=== PATIENT | male | born 1985 | race Caucasian/White ===

== ENCOUNTER 2020-02-08 07:42 | Inpatient (IN) | payer OTHER ==
[~2020-02-08] VITALS: Ht 182.9 cm; Wt 150.1 kg
[2020-02-08] MEDS ORDERED: IV NORMAL SALINE 1000ML BAG 1,000 ML IV ONE (08:45)
--- NOTE | 2020-02-08 08:48 | PHYS DOC ---
General Adult EDM: Chief Complaint: ABDOMINAL PAIN HPI: HPI: Patient is a 34 year old male who presented to ER today for evaluation of right lower abdominal pain started 2 days ago. Patient denies any fever, no nausea vomiting. Patient said he is not hungry. Patient denies any diarrhea. Patient denies any cough or chest pain. Patient denies any exposure to anybody who tested positive COVID-19. Review of Systems: Review of Systems: Constitutional: Denies fever or chills. [] Eyes: Denies change in visual acuity. [] HENT: Denies nasal congestion or sore throat. [] Respiratory: Denies cough or shortness of breath. [] Cardiovascular: Denies chest pain or edema. [] GI: Positive for right lower abdominal pain, no nausea vomiting, no diarrhea : Denies dysuria. [] Musculoskeletal: Denies back pain or joint pain. [] Integument: Denies rash. [] Neurologic: Denies headache, focal weakness or sensory changes. [] Endocrine: Denies polyuria or polydipsia. [] Lymphatic: Denies swollen glands. [] Psychiatric: Denies depression or anxiety. [] Heart Score: Risk Factors: Risk Factors: DM, Current or recent (<one month) smoker, HTN, HLP, family history of CAD, obesity. Risk Scores: Score 0 - 3: 2.5% MACE over next 6 weeks - Discharge Home Score 4 - 6: 20.3% MACE over next 6 weeks - Admit for Clinical Observation Score 7 - 10: 72.7% MACE over next 6 weeks - Early Invasive Strategies Current Medications: Current Medications Medications (Trade) Dose Ordered Sig/[facility] Start Time Stop Time Status Last Admin Dose Admin Sodium Chloride 1,000 ml @ 1,000 mls/hr 1X ONCE 02/08/20 08:45 02/08/20 09:44 UNV Physical Exam: PE: Constitutional: Well developed, well nourished, no acute distress, non-toxic appearance. [] HENT: Normocephalic, atraumatic, bilateral external ears normal, oropharynx moist, no oral exudates, nose normal. [] Eyes: PERRLA, EOMI, conjunctiva normal, no discharge. [] Neck: Normal range of motion, no tenderness, supple, no stridor. [] Cardiovascular:Heart rate regular rhythm, no murmur [] Lungs & Thorax: Bilateral breath sounds clear to auscultation [] Abdomen: Bowel sounds normal, soft, THERE IS tenderness TO PALPATION TO RLQ, NO REBOUND, NO GUARDING, no masses, no pulsatile masses. [] Skin: Warm, dry, no erythema, no rash. [] Back: No tenderness, no CVA tenderness. [] Extremities: No tenderness, no cyanosis, no clubbing, ROM intact, no edema. [] Neurologic: Alert and oriented X 3, normal motor function, normal sensory function, no focal deficits noted. [] Psychologic: Affect normal, judgement normal, mood normal. [] Current Patient Data: Labs: Laboratory Tests Test 02/08/20 08:15 02/08/20 09:20 02/08/20 09:50 Urine Collection Type Void Urine Color Rachel Urine Clarity Clear Urine pH 5.5 Urine Specific [place] >=1.030 Urine Protein 30 mg/dL Urine Glucose (UA) Negative mg/dL Urine Ketones (Stick) Negative mg/dL Urine Blood Moderate Urine Nitrite Negative Urine Bilirubin Small Urine Urobilinogen Dipstick 1.0 mg/dL Urine Leukocyte Esterase Negative Urine RBC 1-2 /HPF Urine WBC 5-10 /HPF Urine Squamous Epithelial Cells Mod /LPF Urine Amorphous Sediment Present /HPF Urine Bacteria Few /HPF Urine Hyaline Casts Occasional /HPF Urine Mucus Mod /LPF White Blood Count 11.5 x10^3/uL Red Blood Count 5.12 x10^6/uL Hemoglobin 14.4 g/dL Hematocrit 43.1 % Mean Corpuscular Volume 84 fL Mean Corpuscular Hemoglobin 28 pg Mean Corpuscular Hemoglobin Concent 33 g/dL Red Cell Distribution Width 14.6 % Platelet Count 355 x10^3/uL Neutrophils (%) (Auto) 73 % Lymphocytes (%) (Auto) 17 % Monocytes (%) (Auto) 9 % Eosinophils (%) (Auto) 1 % Basophils (%) (Auto) 1 % Neutrophils # (Auto) 8.4 x10^3/uL Lymphocytes # (Auto) 1.9 x10^3/uL Monocytes # (Auto) 1.0 x10^3/uL Eosinophils # (Auto) 0.1 x10^3/uL Basophils # (Auto) 0.1 x10^3/uL Sodium Level 137 mmol/L Potassium Level 3.5 mmol/L Chloride Level 100 mmol/L Carbon Dioxide Level 28 mmol/L Anion Gap 9 Blood Urea Nitrogen 10 mg/dL Creatinine 0.9 mg/dL Estimated GFR (Cockcroft-Gault) 97.8 BUN/Creatinine Ratio 11 Glucose Level 81 mg/dL Calcium Level 9.2 mg/dL Total Bilirubin 1.2 mg/dL Aspartate Amino Transf (AST/SGOT) 25 U/L Alanine Aminotransferase (ALT/SGPT) 34 U/L Alkaline Phosphatase 84 U/L Total Protein 8.5 g/dL Albumin 3.2 g/dL Albumin/Globulin Ratio 0.6 Lipase 60 U/L Current Medications Medications (Trade) Dose Ordered Sig/Marvin Route PRN Reason Start Time Stop Time Status Last Admin Dose Admin Sodium Chloride 1,000 ml @ 1,000 mls/hr 1X ONCE IV 02/08/20 08:45 02/08/20 09:44 DC Iohexol (Omnipaque 300 Mg/ml) 75 ml 1X ONCE IV 02/08/20 09:45 02/08/20 09:46 DC 02/08/20 09:50 Piperacillin Sod/ Tazobactam Sod 3.375 gm/Sodium Chloride 50 ml @ 100 mls/hr 1X ONCE IV 02/08/20 10:30 02/08/20 10:59 UNV EKG: EKG: [] Radiology/Procedures: Radiology/Procedures: [][facility] [address] [place] [address] IMAGING REPORT Signed PATIENT: BETY WOODALL LACCOUNT: [id number] : 1985 LOCATION: ER AGE: 34 SEX: M EXAM STATUS: REG ER ORD. PHYSICIAN: CHRISTOPHER BOND DO REASON: RLQ ABDOMINAL PAIN PROCEDURE: CT ABD PELV W/ IV CONTRST ONLY Study: CT abdomen/pelvis with intravenous contrast Indication: Right lower quadrant abdominal pain. Comparison: None. Technique: Helical CT imaging performed of the abdomen and pelvis after the intravenous administration of 75 cc Omnipaque 300 contrast. Sagittal and coronal reformats were obtained. One or more of the following individualized dose reduction techniques were utilized for this examination: 1. Automated exposure control 2. Adjustment of the mA and/or kV according to patient size 3. Use of iterative reconstruction technique. Findings: No focal abnormality of the visualized lungs. No significant pleural effusion. The visualized mediastinal contents are within normal limits. Mild hepatic steatosis. Within normal limits gallbladder, biliary tree, pancreas, spleen and adrenal glands. Unremarkable kidneys and collecting system. Normal prostate. Acute appendicitis with the lumen distended and fluid-filled and edematous wall thickening. Transverse dimension of up to 1.5 cm. Periappendiceal inflammation without an abscess. Calcific debris at the base of the appendix. The colon itself is within normal limits. No small bowel obstruction. No pneumatosis or perforation. Unremarkable stomach. Unremarkable major vasculature. No lymphadenopathy. Trace inflammatory free fluid associated with the appendicitis. Scattered mild degenerative changes. Straightening of lumbar lordosis and developmental narrowing of the lower lumbar spinal canal. Osseous neural foraminal encroachment greatest on the left at L5-S1 appearing moderate. Impression: 1. Acute uncomplicated appendicitis. No pneumoperitoneum to suggest an uncontained perforation and there is no abscess. 2. Mild hepatic steatosis. 3. Early degenerative changes at the lower lumbar spine on a background of developmental lower lumbar canal narrowing. Favored moderate osseous neural foraminal encroachment on the left at L5-S1. Electronically signed by: RUBÉN AHUJA MD (02/08/2020 10:12 AM) [id number] DICTATED and SIGNED BY: RUBÉN AHUJA MD DATE: 02/08/20 1012 Course & Med Decision Making: Course & Med Decision Making Pertinent Labs and Imaging studies reviewed. (See chart for details) Patient is a 34-year-old male who was evaluated in ER due to right lower abdominal pain for 3 days, CT scan his abdomen pelvic show uncomplicated acute appendicitis. Patient will be admitted to the hospital service, general surgery be consulted, IV Zosyn was ordered. Discussed with General surgeon , Dr. Welsh, will see patient. Enriqueta Disclaimer: Dragon Disclaimer: This electronic medical record was generated, in whole or in part, using a voice recognition dictation system. Departure Departure Impression: Primary Impression: Acute appendicitis Disposition: ADMITTED INPATIENT Condition: STABLE Referrals: NO PCP (PCP) CHRISTOPHER BOND DO Feb 08, 2020 08:47
[2020-02-08 08:58] LABS: BILIRUBIN,URINE SMALL (NEG); CLARITY,URINE CLEAR; COLOR,URINE AMBER; NITRITE,URINE NEGATIVE (NEG); PH,URINE 5.5 (<5.0-8.0); PROTEIN,URINE 30 mg/dL (NEG-TRACE)
[2020-02-08 09:07] LABS: AMORPHOUS SEDIMENT,UR PRESENT /HPF; BACTERIA,URINE FEW /HPF (0-FEW); HYALINE CASTS, URINE OCCASIONAL /HPF
[2020-02-08 09:35] LABS: BASO # 0.1 x10^3/uL (0.0-0.2); BASO % 1 % (0-3); EOS # 0.1 x10^3/uL (0.0-0.7); EOS % 1 % (0-3); HEMATOCRIT 43.1 % (39.0-53.0); HEMOGLOBIN 14.4 g/dL (13.0-17.5); LYMPH # 1.9 x10^3/uL (1.0-4.8); LYMPH % 17 % (24-48); MEAN CORPUSCULAR HEMOGLOBIN 28 pg (25-35); MEAN CORPUSCULAR HGB CONC 33 g/dL (31-37); MEAN CORPUSCULAR VOLUME 84 fL (79-100); MONO % 9 % (0-9); NEUT # 8.4 x10^3/uL (1.8-7.7); NEUT % 73 % (31-73); PLATELET COUNT 355 x10^3/uL (140-400); RED BLOOD COUNT 5.12 x10^6/uL (4.30-5.70); RED CELL DISTRIBUTION WIDTH 14.6 % (11.5-14.5); WHITE BLOOD COUNT 11.5 x10^3/uL (4.0-11.0)
[2020-02-08] MEDS ORDERED: IOHEXOL 300 MG/ML 100ML VIAL. IV ONE (09:45)
[2020-02-08 10:10] LABS: CALCIUM 9.2 mg/dL (8.5-10.1); CREATININE 0.9 mg/dL (0.7-1.3); GFR 97.8; POTASSIUM 3.5 mmol/L (3.5-5.1)
[2020-02-08 10:12] LABS: ALBUMIN 3.2 g/dL (3.4-5.0); ALBUMIN/GLOBULIN RATIO 0.6 (1.0-1.7); TOTAL BILIRUBIN 1.2 mg/dL (0.2-1.0); TOTAL PROTEIN 8.5 g/dL (6.4-8.2)
--- NOTE | 2020-02-08 10:15 | RAD ---
Study: CT abdomen/pelvis with intravenous contrast Indication: Right lower quadrant abdominal pain. Comparison: None. Technique: Helical CT imaging performed of the abdomen and pelvis after the intravenous administration of 75 cc Omnipaque 300 contrast. Sagittal and coronal reformats were obtained. One or more of the following individualized dose reduction techniques were utilized for this examination: 1. Automated exposure control 2. Adjustment of the mA and/or kV according to patient size 3. Use of iterative reconstruction technique. Findings: No focal abnormality of the visualized lungs. No significant pleural effusion. The visualized mediastinal contents are within normal limits. Mild hepatic steatosis. Within normal limits gallbladder, biliary tree, pancreas, spleen and adrenal glands. Unremarkable kidneys and collecting system. Normal prostate. Acute appendicitis with the lumen distended and fluid-filled and edematous wall thickening. Transverse dimension of up to 1.5 cm. Periappendiceal inflammation without an abscess. Calcific debris at the base of the appendix. The colon itself is within normal limits. No small bowel obstruction. No pneumatosis or perforation. Unremarkable stomach. Unremarkable major vasculature. No lymphadenopathy. Trace inflammatory free fluid associated with the appendicitis. Scattered mild degenerative changes. Straightening of lumbar lordosis and developmental narrowing of the lower lumbar spinal canal. Osseous neural foraminal encroachment greatest on the left at L5-S1 appearing moderate. Impression: 1. Acute uncomplicated appendicitis. No pneumoperitoneum to suggest an uncontained perforation and there is no abscess. 2. Mild hepatic steatosis. 3. Early degenerative changes at the lower lumbar spine on a background of developmental lower lumbar canal narrowing. Favored moderate osseous neural foraminal encroachment on the left at L5-S1. Electronically signed by: RUBÉN AHUJA MD (02/08/2020 10:12 AM) [id number]
[2020-02-08] MEDS ORDERED: PIPERACILLIN/TAZOBACTAM 3.375 GM in IV NORMAL SALINE 50ML 50 ML IV ONE (10:30)
[2020-02-08] MEDS ORDERED: fentaNYL PF VIAL 100 MCG/2 ML VIAL IV PRN ×2 (10:45)
[2020-02-08] MEDS ORDERED: ONDANSETRON PF 4 MG/2 ML VIAL. IV PRN (10:45)
[2020-02-08] MEDS ORDERED: IV RINGERS,LACTATED 1000ML 1,000 ML IV SCH (10:45)
[2020-02-08] MEDS ORDERED: LIDOCAINE 1% PF 2 ML VIAL. ID PRN (10:45)
[2020-02-08] MEDS ORDERED: PIP/TAZO PER PHARMACY MC PRN (10:45)
[2020-02-08] MEDS ORDERED: HYDROmorphone 2 MG/ML VIAL IV PRN (10:45)
[2020-02-08] MEDS ORDERED: PROCHLORPERAZINE 10 MG/2 ML VIAL. IV PRN (10:45)
[2020-02-08] MEDS ORDERED: MORPHINE SULFATE 2 MG/ML VIAL. IV PRN (10:45)
[2020-02-08] MEDS ORDERED: ONDANSETRON PF 4 MG/2 ML VIAL. ONE (11:14)
[2020-02-08] MEDS ORDERED: ROCURONIUM 50 MG/5 ML VIAL. ONE ×2 (11:14→14:13)
[2020-02-08] MEDS ORDERED: PROPOFOL 10 MG/ML (20ML) VIAL. IV ONE ×2 (11:14→14:44)
[2020-02-08] MEDS ORDERED: fentaNYL PF VIAL 250 MCG/5 ML VIAL ONE (11:14)
[2020-02-08] MEDS ORDERED: LIDOCAINE 2% PF 5 ML VIAL. ONE (11:14)
[2020-02-08] MEDS ORDERED: DEXAMETHASONE SOD PHOS 4 MG/ML VIAL ONE (11:14)
--- NOTE | 2020-02-08 12:16 | PDOC2 ---
CONSULT Date of Consult Date of Consult DATE: 02/08/20 TIME: 12:10 History of Present Illness Reason for Visit: The patient is a 34 year old male who reported to the ER due to abdominal pain. The pain started Friday and was sharp and severe. The pain initially improved, but returned prompting him to report to the ER. His ER evaluation is consistent with appendicitis. Past Medical History Past Medical History Morbid obesity Past Surgical History Past Surgical History Denies Social History No ALCOHOL: rare Current Problem List Problem List Problems Medical Problems: (1) Acute appendicitis Status: Acute Current Medications Current Medications Current Medications Sodium Chloride 1,000 ml @ 1,000 mls/hr 1X ONCE IV Last administered on 02/08/20at 10:20; Start 02/08/20 at 08:45; Stop 02/08/20 at 09:44; Status DC Iohexol (Omnipaque 300 Mg/ml) 75 ml 1X ONCE IV Last administered on 02/08/20at 09:50; Start 02/08/20 at 09:45; Stop 02/08/20 at 09:46; Status DC Piperacillin Sod/ Tazobactam Sod 3.375 gm/Sodium Chloride 50 ml @ 100 mls/hr 1X ONCE IV Last administered on 02/08/20at 10:50; Start 02/08/20 at 10:30; Stop 02/08/20 at 11:03; Status DC Sodium Chloride 1,000 ml @ 100 mls/hr Q10H IV ; Start 02/08/20 at 10:42; Stop 02/09/20 at 10:41 Piperacillin Sod/ Tazobactam Sod (Zosyn Per Pharmacy) 1 each PRN DAILY PRN MC SEE COMMENTS; Start 02/08/20 at 10:45; Status UNV Ondansetron HCl (Zofran) 4 mg PRN Q6HRS PRN IV NAUSEA/VOMITING; Start 02/08/20 at 10:45; Stop 02/09/20 at 10:44 Fentanyl Citrate (Fentanyl 2ml Vial) 25 mcg PRN Q5MIN PRN IV MILD PAIN 1-3; Start 02/08/20 at 10:45; Stop 02/09/20 at 10:44 Fentanyl Citrate (Fentanyl 2ml Vial) 50 mcg PRN Q5MIN PRN IV MODERATE TO SEVERE PAIN; Start 02/08/20 at 10:45; Stop 02/09/20 at 10:44 Morphine Sulfate (Morphine Sulfate) 1 mg PRN Q10MIN PRN IV SEVERE PAIN 7-10; Start 02/08/20 at 10:45; Stop 02/09/20 at 10:44 Ringer's Solution 1,000 ml @ 30 mls/hr Q24H IV ; Start 02/08/20 at 10:45; Stop 02/08/20 at 22:44 Lidocaine HCl (Xylocaine-Mpf 1% 2ml Vial) 2 ml PRN 1X PRN ID PRIOR TO IV START; Start 02/08/20 at 10:45; Stop 02/09/20 at 10:44 Hydromorphone HCl (Dilaudid) 0.5 mg PRN Q10MIN PRN IV SEV PAIN, Second choice; Start 02/08/20 at 10:45; Stop 02/09/20 at 10:44 Prochlorperazine Edisylate (Compazine) 5 mg PACU PRN PRN IV NAUSEA, MRX1; Start 02/08/20 at 10:45; Stop 02/09/20 at 10:44 Ondansetron HCl (Zofran) 4 mg STK-MED ONCE .ROUTE ; Start 02/08/20 at 11:14; Stop 02/08/20 at 11:14; Status DC Propofol (Diprivan) 200 mg STK-MED ONCE IV ; Start 02/08/20 at 11:14; Stop 02/08/20 at 11:14; Status DC Lidocaine HCl (Lidocaine Pf 2% Vial) 5 ml STK-MED ONCE .ROUTE ; Start 02/08/20 at 11:14; Stop 02/08/20 at 11:14; Status DC Dexamethasone Sodium Phosphate (Decadron) 4 mg STK-MED ONCE .ROUTE ; Start 02/08/20 at 11:14; Stop 02/08/20 at 11:14; Status DC Fentanyl Citrate (Fentanyl 5ml Vial) 250 mcg STK-MED ONCE .ROUTE ; Start 02/08/20 at 11:14; Stop 02/08/20 at 11:14; Status DC Rocuronium [place] (Zemuron) 50 mg STK-MED ONCE .ROUTE ; Start 02/08/20 at 11:14; Stop 02/08/20 at 11:14; Status DC Allergies Allergies: Coded Allergies: No Known Drug Allergies (Unverified , 10/6/20) ROS General: No: Chills, Night Sweats, Fatigue, Malaise, Appetite, Other PSYCHOLOGICAL ROS: No: Anxiety, Behavioral Disorder, Concentration difficultie, Decreased libido, Depression, Disorientation, Hallucinations, Hostility, Irritablity, Memory difficulties, Mood Swings, Obsessive thoughts, Physical abuse, Sexual abuse, Sleep disturbances, Suicidal ideation, Other Eyes: No Blurry vision, No Decreased vision, No Double vision, No Dry eyes, No Excessive tearing, No Eye Pain, No Itchy Eyes, No Loss of vision, No Photophobia, No Scotomata, No Uses contacts, No Uses glasses, No Other HEENT: No: Heacaches, Visual Changes, Hearing change, Nasal congestion, Nasal discharge, Oral lesions, Sinus pain, Sore Throat, Epistaxis, Sneezing, Snoring, Tinnitus, Vertigo, Vocal changes, Other ALLERGY AND IMMUNOLOGY: No: Hives, Insect Bite Sensitivity, Itchy/Watery Eyes, Nasal Congestion, Post Nasal Drip, Seasonal Allergies, Other Hematological and Lymphatic: No: Bleeding Problems, Blood Clots, Blood Transfusions, Brusing, Night Sweats, Pallor, Swollen Lymph Nodes, Other Breast: No New/Changing Breast Lumps, No Nipple changes, No Nipple discharge, No Other Respiratory: No: Cough, Hemoptysis, Orthopnea, Pleuritic Pain, Shortness of breath, SOB with excertion, Sputum Changes, Stridor, Tachypnea, Wheezing, Other Cardiovascular: No Chest Pain, No Palpitations, No Orthopnea, No Paroxysmal Noc. Dyspnea, No Edema, No Lt Headedness, No Other Gastrointestinal: Yes Abdominal Pain Genitourinary: No Dysuria, No Frequency, No Incontinence, No Hematuria, No Retention, No Discharge, No Urgency, No Pain, No Flank Pain, No Other, No , No , No , No , No , No , No Musculoskeletal: No Gait Disturbance, No Joint Pain, No Joint Stiffness, No Joint Swelling, No Muscle Pain, No Muscular Weakness, No Pain In:, No Swelling In:, No Other Neurological: No Behavorial Changes, No Bowel/Bladder ControlChng, No Confusion, No Dizziness, No Gait Disturbance, No Headaches, No Impaired Coord/balance, No Memory Loss, No Numbness/Tingling, No Seizures, No Speech Problems, No Tremors, No Visual Changes, No Weakness, No Other Skin: No Dry Skin, No Eczema, No Hair Changes, No Lumps, No Mole Changes, No Mottling, No Nail Changes, No Pruritus, No Rash, No Skin Lesion Changes, No Other, No Acne Physical Exam General: Alert, Oriented X3, Cooperative HEENT: Atraumatic Lungs: Clear to auscultation Heart: Regular rate Abdomen: Soft (obese, tender with guarding RLQ) Extremities: No clubbing, No cyanosis Skin: No rashes Neuro: Normal speech MUSCULOSKELETAL: No deformity Vitals VITALS Vital Signs Date Time Temp Pulse Resp B/P (MAP) Pulse Ox O2 Delivery O2 Flow Rate FiO2 02/08/20 11:38 97.8 82 15 139/73 97 97.8 02/08/20 10:55 Room Air Labs Labs Laboratory Tests Test 02/08/20 08:15 02/08/20 09:20 02/08/20 09:50 02/08/20 10:25 Urine Collection Type Void Urine Color Rachel Urine Clarity Clear Urine pH 5.5 (<5.0-8.0) Urine Specific [place] >=1.030 (1.000-1.030) Urine Protein 30 mg/dL (NEG-TRACE) Urine Glucose (UA) Negative mg/dL (NEG) Urine Ketones (Stick) Negative mg/dL (NEG) Urine Blood Moderate (NEG) Urine Nitrite Negative (NEG) Urine Bilirubin Small (NEG) Urine Urobilinogen Dipstick 1.0 mg/dL (0.2 mg/dL) Urine Leukocyte Esterase Negative (NEG) Urine RBC 1-2 /HPF (0-2) Urine WBC 5-10 /HPF (0-4) Urine Squamous Epithelial Cells Mod /LPF Urine Amorphous Sediment Present /HPF Urine Bacteria Few /HPF (0-FEW) Urine Hyaline Casts Occasional /HPF Urine Mucus Mod /LPF White Blood Count 11.5 x10^3/uL (4.0-11.0) Red Blood Count 5.12 x10^6/uL (4.30-5.70) Hemoglobin 14.4 g/dL (13.0-17.5) Hematocrit 43.1 % (39.0-53.0) Mean Corpuscular Volume 84 fL (79-100) Mean Corpuscular Hemoglobin 28 pg (25-35) Mean Corpuscular Hemoglobin Concent 33 g/dL (31-37) Red Cell Distribution Width 14.6 % (11.5-14.5) Platelet Count 355 x10^3/uL (140-400) Neutrophils (%) (Auto) 73 % (31-73) Lymphocytes (%) (Auto) 17 % (24-48) Monocytes (%) (Auto) 9 % (0-9) Eosinophils (%) (Auto) 1 % (0-3) Basophils (%) (Auto) 1 % (0-3) Neutrophils # (Auto) 8.4 x10^3/uL (1.8-7.7) Lymphocytes # (Auto) 1.9 x10^3/uL (1.0-4.8) Monocytes # (Auto) 1.0 x10^3/uL (0.0-1.1) Eosinophils # (Auto) 0.1 x10^3/uL (0.0-0.7) Basophils # (Auto) 0.1 x10^3/uL (0.0-0.2) Sodium Level 137 mmol/L (136-145) Potassium Level 3.5 mmol/L (3.5-5.1) Chloride Level 100 mmol/L (98-107) Carbon Dioxide Level 28 mmol/L (21-32) Anion Gap 9 (6-14) Blood Urea Nitrogen 10 mg/dL (8-26) Creatinine 0.9 mg/dL (0.7-1.3) Estimated GFR (Cockcroft-Gault) 97.8 BUN/Creatinine Ratio 11 (6-20) Glucose Level 81 mg/dL (70-99) Calcium Level 9.2 mg/dL (8.5-10.1) Total Bilirubin 1.2 mg/dL (0.2-1.0) Aspartate Amino Transf (AST/SGOT) 25 U/L (15-37) Alanine Aminotransferase (ALT/SGPT) 34 U/L (16-63) Alkaline Phosphatase 84 U/L (46-116) Total Protein 8.5 g/dL (6.4-8.2) Albumin 3.2 g/dL (3.4-5.0) Albumin/Globulin Ratio 0.6 (1.0-1.7) Lipase 60 U/L (73-393) SARS-CoV-2 Antigen (Rapid) Negative (NEGATIVE) Laboratory Tests Test 02/08/20 08:15 02/08/20 09:20 02/08/20 09:50 02/08/20 10:25 Urine Collection Type Void Urine Color Rachel Urine Clarity Clear Urine pH 5.5 (<5.0-8.0) Urine Specific [place] >=1.030 (1.000-1.030) Urine Protein 30 mg/dL (NEG-TRACE) Urine Glucose (UA) Negative mg/dL (NEG) Urine Ketones (Stick) Negative mg/dL (NEG) Urine Blood Moderate (NEG) Urine Nitrite Negative (NEG) Urine Bilirubin Small (NEG) Urine Urobilinogen Dipstick 1.0 mg/dL (0.2 mg/dL) Urine Leukocyte Esterase Negative (NEG) Urine RBC 1-2 /HPF (0-2) Urine WBC 5-10 /HPF (0-4) Urine Squamous Epithelial Cells Mod /LPF Urine Amorphous Sediment Present /HPF Urine Bacteria Few /HPF (0-FEW) Urine Hyaline Casts Occasional /HPF Urine Mucus Mod /LPF White Blood Count 11.5 x10^3/uL (4.0-11.0) Red Blood Count 5.12 x10^6/uL (4.30-5.70) Hemoglobin 14.4 g/dL (13.0-17.5) Hematocrit 43.1 % (39.0-53.0) Mean Corpuscular Volume 84 fL (79-100) Mean Corpuscular Hemoglobin 28 pg (25-35) Mean Corpuscular Hemoglobin Concent 33 g/dL (31-37) Red Cell Distribution Width 14.6 % (11.5-14.5) Platelet Count 355 x10^3/uL (140-400) Neutrophils (%) (Auto) 73 % (31-73) Lymphocytes (%) (Auto) 17 % (24-48) Monocytes (%) (Auto) 9 % (0-9) Eosinophils (%) (Auto) 1 % (0-3) Basophils (%) (Auto) 1 % (0-3) Neutrophils # (Auto) 8.4 x10^3/uL (1.8-7.7) Lymphocytes # (Auto) 1.9 x10^3/uL (1.0-4.8) Monocytes # (Auto) 1.0 x10^3/uL (0.0-1.1) Eosinophils # (Auto) 0.1 x10^3/uL (0.0-0.7) Basophils # (Auto) 0.1 x10^3/uL (0.0-0.2) Sodium Level 137 mmol/L (136-145) Potassium Level 3.5 mmol/L (3.5-5.1) Chloride Level 100 mmol/L (98-107) Carbon Dioxide Level 28 mmol/L (21-32) Anion Gap 9 (6-14) Blood Urea Nitrogen 10 mg/dL (8-26) Creatinine 0.9 mg/dL (0.7-1.3) Estimated GFR (Cockcroft-Gault) 97.8 BUN/Creatinine Ratio 11 (6-20) Glucose Level 81 mg/dL (70-99) Calcium Level 9.2 mg/dL (8.5-10.1) Total Bilirubin 1.2 mg/dL (0.2-1.0) Aspartate Amino Transf (AST/SGOT) 25 U/L (15-37) Alanine Aminotransferase (ALT/SGPT) 34 U/L (16-63) Alkaline Phosphatase 84 U/L (46-116) Total Protein 8.5 g/dL (6.4-8.2) Albumin 3.2 g/dL (3.4-5.0) Albumin/Globulin Ratio 0.6 (1.0-1.7) Lipase 60 U/L (73-393) SARS-CoV-2 Antigen (Rapid) Negative (NEGATIVE) Assessment/Plan Assessment/Plan 34 year old male with clinical and radiographic presentation consistent with appendicitis; plan to proceed to OR for appendectomy. The details and risks of surgery were discussed with the patient. He understands and would like to proceed. ELIJAH ARNDT MD Feb 08, 2020 12:16
[2020-02-08] MEDS ORDERED: BUPIVACAINE-EPI 0.25%-1:200000 MPF 30 ML VIAL. INJ ONE (13:30)
[2020-02-08] MEDS ORDERED: GLYCOPYRROLATE 1 MG/5 ML VIAL. ONE (14:18)
[2020-02-08] MEDS ORDERED: NEOSTIGMINE METHYLSULFATE 5 MG/5 ML SYRINGE. ONE (14:18)
[2020-02-08] MEDS ORDERED: KETOROLAC 30 MG/ML VIAL. ONE (14:19)
[2020-02-08] MEDS ORDERED: SEVOFLURANE 31 TO 60 MINUTES. IH ONE (14:19)
[2020-02-08] MEDS ORDERED: SEVOFLURANE 61 TO 120 MINUTES. IH ONE (14:20)
[2020-02-08] MEDS ORDERED: PROCHLORPERAZINE 10 MG/2 ML VIAL. ONE (15:46)
[2020-02-08] MEDS ORDERED: fentaNYL PF VIAL 100 MCG/2 ML VIAL ONE (15:46)
--- NOTE | 2020-02-08 16:31 | PDOC4 ---
Operative Note Operative Note Preoperative Diagnosis: Acute Appendicitis Postoperative Diagnosis: Same Procedure: Laparoscopic appendectomy Surgeon: Blaise Anesthesia: Gen. EBL: 10 mL Specimen: Appendix to pathology Drains: None Complications: None Indication: The patient is a 34-year-old male who reported to the emergency department with abdominal pain. The evaluation is consistent with acute appendicitis. The patient was offered surgical treatment with a laparoscopic appendectomy. The risks of surgery were discussed which include bleeding, infection, visceral injury, pain, anesthetic risk, potential need for additional surgery or procedure. The patient understands and would like to proceed. Description: The patient was taken to the operating room and placed supine on the operating table. Gen. anesthesia was performed. The abdomen was prepped with ChloraPrep and draped in a standard surgical manner. A supraumbilical incision was made through which a veress needle was inserted and a pneumoperitoneum was created. A visualized 5 mm trocar was inserted and the laparoscope was introd uced. In the left lower quadrant a 5 mm trocar was inserted. In the suprapubic region a 12 mm trocar was inserted. The appendix was identified and appeared inflamed consistent with acute appendicitis. There was no clear evidence of perforation or periappendiceal abscess. The mesoappendix was bluntly from the appendix. The mesoappendix was controlled using several clips and it was divided. The appendix was then amputated off the cecum using an Endo JUAN ANTONIO 45 stapling device. The appendix was then placed in an endoscopic bag and extracted at the suprapubic incision site. The fascia there was closed with 0 Vicryl and infiltrated with half percent Marcaine with epinephrine. The RLQ was visualized and the staple line appeared well intact and hemostasis was good. No other abnormalities were identified grossly. The remaining ports were removed and the pneumoperitoneum was relieved. The skin at all incision sites was closed with 4- 0 Monocryl. Steri-Strips and dressings were applied. The patient tolerated the procedure well and was sent to the recovery room in stable condition. At the end of the case all counts were correct. ELIJAH ARNDT MD Feb 08, 2020 16:31
[2020-02-08] MEDS ORDERED: oxyCODONE/APAP 5/325 1 TAB TABLET PO PRN ×2 (16:45)
--- NOTE | 2020-02-08 17:11 | PDOC1 ---
History and Physical Date of Service: DOS: DATE: 02/08/20 TIME: 17:09 Chief Complaint: Chief Complain: ABD pain History of Present Illness: HPI: 34 year old male who presented to ER today for evaluation of right lower abdominal pain started 2 days ago. Patient denies any fever, no nausea vomiting. Patient said he is not hungry. Patient denies any diarrhea. Patient denies any cough or chest pain. Patient denies any exposure to anybody who tested positive COVID-19. Past Medical/Surgical History: PMH/PSH: No pertinent past medical or surgical history Allergies: Allergies: Coded Allergies: No Known Drug Allergies (Unverified , 02/08/20) Family History: Family History: Reviewed and none reported Social History: Social History: Occasional cigar and social drinking Current Medications: Current Medications Current Medications Sodium Chloride 1,000 ml @ 1,000 mls/hr 1X ONCE IV Last administered on 02/08/20at 10:20; Start 02/08/20 at 08:45; Stop 02/08/20 at 09:44; Status DC Iohexol (Omnipaque 300 Mg/ml) 75 ml 1X ONCE IV Last administered on 02/08/20at 09:50; Start 02/08/20 at 09:45; Stop 02/08/20 at 09:46; Status DC Piperacillin Sod/ Tazobactam Sod 3.375 gm/Sodium Chloride 50 ml @ 100 mls/hr 1X ONCE IV Last administered on 02/08/20at 10:50; Start 02/08/20 at 10:30; Stop 02/08/20 at 11:03; Status DC Sodium Chloride 1,000 ml @ 100 mls/hr Q10H IV ; Start 02/08/20 at 10:42; Stop 02/09/20 at 10:41 Piperacillin Sod/ Tazobactam Sod (Zosyn Per Pharmacy) 1 each PRN DAILY PRN MC SEE COMMENTS; Start 02/08/20 at 10:45 Ondansetron HCl (Zofran) 4 mg PRN Q6HRS PRN IV NAUSEA/VOMITING; Start 02/08/20 at 10:45; Stop 02/09/20 at 10:44 Fentanyl Citrate (Fentanyl 2ml Vial) 25 mcg PRN Q5MIN PRN IV MILD PAIN 1-3; Start 02/08/20 at 10:45; Stop 02/09/20 at 10:44 Fentanyl Citrate (Fentanyl 2ml Vial) 50 mcg PRN Q5MIN PRN IV MODERATE TO SEVERE PAIN Last administered on 02/08/20at 15:59; Start 02/08/20 at 10:45; Stop 02/09/20 at 10:44 Morphine Sulfate (Morphine Sulfate) 1 mg PRN Q10MIN PRN IV SEVERE PAIN 7-10; Start 02/08/20 at 10:45; Stop 02/09/20 at 10:44 Ringer's Solution 1,000 ml @ 30 mls/hr Q24H IV ; Start 02/08/20 at 10:45; Stop 02/08/20 at 22:44 Lidocaine HCl (Xylocaine-Mpf 1% 2ml Vial) 2 ml PRN 1X PRN ID PRIOR TO IV START; Start 02/08/20 at 10:45; Stop 02/09/20 at 10:44 Hydromorphone HCl (Dilaudid) 0.5 mg PRN Q10MIN PRN IV SEV PAIN, Second choice; Start 02/08/20 at 10:45; Stop 02/09/20 at 10:44 Prochlorperazine Edisylate (Compazine) 5 mg PACU PRN PRN IV NAUSEA, MRX1 Last a dministered on 02/08/20at 15:58; Start 02/08/20 at 10:45; Stop 02/09/20 at 10:44 Ondansetron HCl (Zofran) 4 mg STK-MED ONCE .ROUTE ; Start 02/08/20 at 11:14; Stop 02/08/20 at 11:14; Status DC Propofol (Diprivan) 200 mg STK-MED ONCE IV ; Start 02/08/20 at 11:14; Stop 02/08/20 at 11:14; Status DC Lidocaine HCl (Lidocaine Pf 2% Vial) 5 ml STK-MED ONCE .ROUTE ; Start 02/08/20 at 11:14; Stop 02/08/20 at 11:14; Status DC Dexamethasone Sodium Phosphate (Decadron) 4 mg STK-MED ONCE .ROUTE ; Start 02/08/20 at 11:14; Stop 02/08/20 at 11:14; Status DC Fentanyl Citrate (Fentanyl 5ml Vial) 250 mcg STK-MED ONCE .ROUTE ; Start 02/08/20 at 11:14; Stop 02/08/20 at 11:14; Status DC Rocuronium [place] (Zemuron) 50 mg STK-MED ONCE .ROUTE ; Start 02/08/20 at 11:14; Stop 02/08/20 at 11:14; Status DC Bupivacaine HCl/ Epinephrine Bitart (Sensorcaine-Epi 0.25%-1:[id number] Mpf) 30 ml 1X ONCE INJ Last administered on 02/08/20at 14:09; Start 02/08/20 at 13:30; Stop 02/08/20 at 13:31; Status DC Rocuronium [place] (Zemuron) 50 mg STK-MED ONCE .ROUTE ; Start 02/08/20 at 14:13; Stop 02/08/20 at 14:14; Status DC Glycopyrrolate (Robinul) 1 mg STK-MED ONCE .ROUTE ; Start 02/08/20 at 14:18; Stop 02/08/20 at 14:19; Status DC Neostigmine [place] (Neostigmine Methylsulfate) 5 mg STK-MED ONCE .ROUTE ; Start 02/08/20 at 14:18; Stop 02/08/20 at 14:19; Status DC Ketorolac Tromethamine (Toradol 30mg Vial) 30 mg STK-MED ONCE .ROUTE ; Start 02/08/20 at 14:19; Stop 02/08/20 at 14:20; Status DC Sevoflurane (Ultane) 30 ml STK-MED ONCE IH ; Start 02/08/20 at 14:19; Stop 02/08/20 at 14:20; Status DC Sevoflurane (Ultane) 60 ml STK-MED ONCE IH ; Start 02/08/20 at 14:20; Stop 02/08/20 at 14:20; Status DC Piperacillin Sod/ Tazobactam Sod 3.375 gm/Sodium Chloride 50 ml @ 100 mls/hr Q6HRS IV ; Start 02/08/20 at 18:00 Propofol (Diprivan) 200 mg STK-MED ONCE IV ; Start 02/08/20 at 14:44; Stop 02/08/20 at 14:44; Status DC Fentanyl Citrate (Fentanyl 2ml Vial) 100 mcg STK-MED ONCE .ROUTE ; Start 02/08/20 at 15:46; Stop 02/08/20 at 15:46; Status DC Prochlorperazine Edisylate (Compazine) 10 mg STK-MED ONCE .ROUTE ; Start 02/08/20 at 15:46; Stop 02/08/20 at 15:46; Status DC Oxycodone/ Acetaminophen (Percocet 5/325) 1 tab PRN Q4HRS PRN PO PAIN; Start 02/08/20 at 16:45 Oxycodone/ Acetaminophen (Percocet 5/325) 2 tab PRN Q4HRS PRN PO PAIN; Start 02/08/20 at 16:45 ROS: Review of Systems Review of System REVIEW OF SYSTEMS: GENERAL: Denies weakness SKIN: No bruising, hair changes or rashes. EYES: No blurred, double or loss of vision. NOSE AND THROAT: No history of nosebleeds, hoarseness or sore throat. HEART: No history of palpitations, chest pain or shortness of breath on exertion. LUNGS: Denies cough, hemoptysis, wheezing or shortness of breath. GASTROINTESTINAL: Denies changes in appetite, nausea, vomiting, diarrhea or constipation. GENITOURINARY: No history of frequency, urgency, hesitancy or nocturia. NEUROLOGIC: Denies history of numbness, tingling, or tremor. PSYCHIATRIC: No history of panic, anxiety or depression. ENDOCRINE: No history of heat or cold intolerance, polyuria or polydipsia. EXTREMITIES: Denies joint pain, pain on walking or stiffness. Physical Exam: Vital Signs: Vital Signs Date Time Temp Pulse Resp B/P (MAP) Pulse Ox O2 Delivery O2 Flow Rate FiO2 02/08/20 15:59 20 Room Air 02/08/20 11:38 97.8 82 139/73 97 97.8 Physcial Exam: GEN: No apparent distress. Alert and oriented HEENT: Normal cephalic, atraumatic, external auditory canals are patent EYES: Extraocular muscles are intact, pupil are equally round and reactive to light and accommodation MUSCULOSKELETAL: Well developed , well nourished, good range of motion ENDOCRINE: No thyromegaly was palpated LYMPHATICS: No cervical chain or axillary nodes were noted HEMATOPOIETIC: No bruising NECK: Supple, no JVD, no thyromegaly was noted LUNGS: Clear to auscultation in all lung borrego without rhonchi or wheezing HEART: RRR, S!, S2 present. Peripheral pulses intact, no obvious murmurs noted ABDOMEN: Soft, appropriate tenderness to palpation in the right lower quadrant positive bowel sounds, no organomegaly, normal bowel sounds EXTREMITIES: Without clubbing, cyanosis, or edema. Pedal pulses intact. Negative Homans sign NEUROLOGIC: Normal speech and tone. A&O x 3, moves all extremities, no obvious focal deficits PSYCHIATRIC: Normal affect, normal mood. Stable SKIN: No ulcerations or rashes, good skin turgor, no jaundice VASCULAR: Good capillary refill, neurovascular bundle appears to be intact Labs: Labs: Laboratory Tests Test 02/08/20 08:15 02/08/20 09:20 02/08/20 09:50 02/08/20 10:25 Urine Collection Type Void Urine Color Rachel Urine Clarity Clear Urine pH 5.5 (<5.0-8.0) Urine Specific Baldwin >=1.030 (1.000-1.030) Urine Protein 30 mg/dL (NEG-TRACE) Urine Glucose (UA) Negative mg/dL (NEG) Urine Ketones (Stick) Negative mg/dL (NEG) Urine Blood Moderate (NEG) Urine Nitrite Negative (NEG) Urine Bilirubin Small (NEG) Urine Urobilinogen Dipstick 1.0 mg/dL (0.2 mg/dL) Urine Leukocyte Esterase Negative (NEG) Urine RBC 1-2 /HPF (0-2) Urine WBC 5-10 /HPF (0-4) Urine Squamous Epithelial Cells Mod /LPF Urine Amorphous Sediment Present /HPF Urine Bacteria Few /HPF (0-FEW) Urine Hyaline Casts Occasional /HPF Urine Mucus Mod /LPF White Blood Count 11.5 x10^3/uL (4.0-11.0) Red Blood Count 5.12 x10^6/uL (4.30-5.70) Hemoglobin 14.4 g/dL (13.0-17.5) Hematocrit 43.1 % (39.0-53.0) Mean Corpuscular Volume 84 fL (79-100) Mean Corpuscular Hemoglobin 28 pg (25-35) Mean Corpuscular Hemoglobin Concent 33 g/dL (31-37) Red Cell Distribution Width 14.6 % (11.5-14.5) Platelet Count 355 x10^3/uL (140-400) Neutrophils (%) (Auto) 73 % (31-73) Lymphocytes (%) (Auto) 17 % (24-48) Monocytes (%) (Auto) 9 % (0-9) Eosinophils (%) (Auto) 1 % (0-3) Basophils (%) (Auto) 1 % (0-3) Neutrophils # (Auto) 8.4 x10^3/uL (1.8-7.7) Lymphocytes # (Auto) 1.9 x10^3/uL (1.0-4.8) Monocytes # (Auto) 1.0 x10^3/uL (0.0-1.1) Eosinophils # (Auto) 0.1 x10^3/uL (0.0-0.7) Basophils # (Auto) 0.1 x10^3/uL (0.0-0.2) Sodium Level 137 mmol/L (136-145) Potassium Level 3.5 mmol/L (3.5-5.1) Chloride Level 100 mmol/L (98-107) Carbon Dioxide Level 28 mmol/L (21-32) Anion Gap 9 (6-14) Blood Urea Nitrogen 10 mg/dL (8-26) Creatinine 0.9 mg/dL (0.7-1.3) Estimated GFR (Cockcroft-Gault) 97.8 BUN/Creatinine Ratio 11 (6-20) Glucose Level 81 mg/dL (70-99) Calcium Level 9.2 mg/dL (8.5-10.1) Total Bilirubin 1.2 mg/dL (0.2-1.0) Aspartate Amino Transf (AST/SGOT) 25 U/L (15-37) Alanine Aminotransferase (ALT/SGPT) 34 U/L (16-63) Alkaline Phosphatase 84 U/L (46-116) Total Protein 8.5 g/dL (6.4-8.2) Albumin 3.2 g/dL (3.4-5.0) Albumin/Globulin Ratio 0.6 (1.0-1.7) Lipase 60 U/L (73-393) SARS-CoV-2 Antigen (Rapid) Negative (NEGATIVE) Laboratory Tests Test 02/08/20 08:15 02/08/20 09:20 02/08/20 09:50 02/08/20 10:25 Urine Collection Type Void Urine Color Rachel Urine Clarity Clear Urine pH 5.5 (<5.0-8.0) Urine Specific Baldwin >=1.030 (1.000-1.030) Urine Protein 30 mg/dL (NEG-TRACE) Urine Glucose (UA) Negative mg/dL (NEG) Urine Ketones (Stick) Negative mg/dL (NEG) Urine Blood Moderate (NEG) Urine Nitrite Negative (NEG) Urine Bilirubin Small (NEG) Urine Urobilinogen Dipstick 1.0 mg/dL (0.2 mg/dL) Urine Leukocyte Esterase Negative (NEG) Urine RBC 1-2 /HPF (0-2) Urine WBC 5-10 /HPF (0-4) Urine Squamous Epithelial Cells Mod /LPF Urine Amorphous Sediment Present /HPF Urine Bacteria Few /HPF (0-FEW) Urine Hyaline Casts Occasional /HPF Urine Mucus Mod /LPF White Blood Count 11.5 x10^3/uL (4.0-11.0) Red Blood Count 5.12 x10^6/uL (4.30-5.70) Hemoglobin 14.4 g/dL (13.0-17.5) Hematocrit 43.1 % (39.0-53.0) Mean Corpuscular Volume 84 fL (79-100) Mean Corpuscular Hemoglobin 28 pg (25-35) Mean Corpuscular Hemoglobin Concent 33 g/dL (31-37) Red Cell Distribution Width 14.6 % (11.5-14.5) Platelet Count 355 x10^3/uL (140-400) Neutrophils (%) (Auto) 73 % (31-73) Lymphocytes (%) (Auto) 17 % (24-48) Monocytes (%) (Auto) 9 % (0-9) Eosinophils (%) (Auto) 1 % (0-3) Basophils (%) (Auto) 1 % (0-3) Neutrophils # (Auto) 8.4 x10^3/uL (1.8-7.7) Lymphocytes # (Auto) 1.9 x10^3/uL (1.0-4.8) Monocytes # (Auto) 1.0 x10^3/uL (0.0-1.1) Eosinophils # (Auto) 0.1 x10^3/uL (0.0-0.7) Basophils # (Auto) 0.1 x10^3/uL (0.0-0.2) Sodium Level 137 mmol/L (136-145) Potassium Level 3.5 mmol/L (3.5-5.1) Chloride Level 100 mmol/L (98-107) Carbon Dioxide Level 28 mmol/L (21-32) Anion Gap 9 (6-14) Blood Urea Nitrogen 10 mg/dL (8-26) Creatinine 0.9 mg/dL (0.7-1.3) Estimated GFR (Cockcroft-Gault) 97.8 BUN/Creatinine Ratio 11 (6-20) Glucose Level 81 mg/dL (70-99) Calcium Level 9.2 mg/dL (8.5-10.1) Total Bilirubin 1.2 mg/dL (0.2-1.0) Aspartate Amino Transf (AST/SGOT) 25 U/L (15-37) Alanine Aminotransferase (ALT/SGPT) 34 U/L (16-63) Alkaline Phosphatase 84 U/L (46-116) Total Protein 8.5 g/dL (6.4-8.2) Albumin 3.2 g/dL (3.4-5.0) Albumin/Globulin Ratio 0.6 (1.0-1.7) Lipase 60 U/L (73-393) SARS-CoV-2 Antigen (Rapid) Negative (NEGATIVE) Images: Images CT abdomen pelvis Impression: 1. Acute uncomplicated appendicitis. No pneumoperitoneum to suggest an uncontained perforation and there is no abscess. 2. Mild hepatic steatosis. 3. Early degenerative changes at the lower lumbar spine on a background of developmental lower lumbar canal narrowing. Favored moderate osseous neural foraminal encroachment on the left at L5-S1. Assessment/Plan Assessment/Plan Abdominal pain due to acute appendicitis Admit to medicine for further management General surgery consulted planned for OR for laparoscopic appendectomy N.p.o. Continue IV fluids Continue empiric IV antibiotics Lovenox for DVT prophylaxis after surgery ADA diet Full code Discussed with RN and SW Disposition on-call to the OR Surrogate decision maker is undesignated's time Justifications for Admission Abdominal Pain Indications Is patient in severe pain?: Yes Justification for admission: Patient has severe pain that requires (parenteral analgesic-please state analgesics and route) at least every 4 hours necessitating inpatient level of care. Is NPO status required?: Yes Justification for admission: Patient may require to be NPO for greater 24hours making it medically necessary to manage patient as inpatient. Other Justification STEPHANIE GIANG MD Feb 08, 2020 17:10
[2020-02-08] MEDS ORDERED: ELECTROLYTE (NON-ICU) PROTOCOL MC PRN (17:15)
[2020-02-08] MEDS ORDERED: ONDANSETRON PF 4 MG/2 ML VIAL. IVP PRN (17:15)
[2020-02-08] MEDS ORDERED: SENNOSIDES 8.6 MG TABLET PO PRN (17:15)
[2020-02-08] MEDS ORDERED: POTASSIUM CHLORIDE 10MEQ 100 ML IV PRN (17:15)
[2020-02-08] MEDS ORDERED: POTASSIUM CHLORIDE 20 MEQ TABLET.ER. PO PRN (17:15)
[2020-02-08] MEDS ORDERED: DOCUSATE SODIUM 100 MG CAPSULE. PO PRN (17:15)
[2020-02-08] MEDS ORDERED: ACETAMINOPHEN 325 MG TABLET. PO PRN (17:15)
[2020-02-08] MEDS ORDERED: MAGNESIUM SULFATE 2GM 50 ML IV SCH (17:15)
[2020-02-08] MEDS ORDERED: DEXTROSE 50% 25 GM / 50ML DISP.SYRIN. IV PRN (17:15)
[2020-02-08] MEDS ORDERED: POTASSIUM CHLORIDE 10MEQ 100 ML IV SCH (17:15)
[2020-02-08 18:00] VITALS: BP 138/80
[2020-02-08] MEDS ORDERED: ENOXAPARIN 40 MG/0.4 ML SYRINGE. SQ SCH (18:00)
[2020-02-08] MEDS: IV NORMAL SALINE 1000ML BAG 1,000 ML IV SCH (18:12)
[2020-02-08] MEDS: PIPERACILLIN/TAZOBACTAM 3.375 GM in IV NORMAL SALINE 50ML 50 ML IV SCH (18:13)
[2020-02-08 19:00] VITALS: BP 120/71
[2020-02-08 19:30] VITALS: BP 118/63
[2020-02-08 20:00] VITALS: BP 112/53
[2020-02-08] MEDS: ENOXAPARIN 40 MG/0.4 ML SYRINGE. SQ SCH (20:31)
[2020-02-08 21:00] VITALS: BP 134/72
[2020-02-08] MEDS ORDERED: MAGNESIUM OXIDE 400 MG TABLET PO SCH (21:00)
[2020-02-08 23:00] VITALS: BP 122/74
[2020-02-09] MEDS: PIPERACILLIN/TAZOBACTAM 3.375 GM in IV NORMAL SALINE 50ML 50 ML IV SCH ×3 (01:30→12:36)
[2020-02-09 03:00] VITALS: BP 126/68
[2020-02-09 05:15] LABS: BASO % 0 % (0-3); EOS % 0 % (0-3); HEMATOCRIT 37.6 % (39.0-53.0); HEMOGLOBIN 12.3 g/dL (13.0-17.5); LYMPH # 1.2 x10^3/uL (1.0-4.8); LYMPH % 9 % (24-48); MEAN CORPUSCULAR HEMOGLOBIN 28 pg (25-35); MEAN CORPUSCULAR HGB CONC 33 g/dL (31-37); MEAN CORPUSCULAR VOLUME 84 fL (79-100); MONO # 1.1 x10^3/uL (0.0-1.1); MONO % 8 % (0-9); NEUT # 10.9 x10^3/uL (1.8-7.7); NEUT % 83 % (31-73); PLATELET COUNT 366 x10^3/uL (140-400); RED BLOOD COUNT 4.46 x10^6/uL (4.30-5.70); RED CELL DISTRIBUTION WIDTH 14.5 % (11.5-14.5); WHITE BLOOD COUNT 13.3 x10^3/uL (4.0-11.0)
[2020-02-09] MEDS: IV NORMAL SALINE 1000ML BAG 1,000 ML IV SCH (05:31)
[2020-02-09 05:50] LABS: CALCIUM 8.8 mg/dL (8.5-10.1); CREATININE 0.9 mg/dL (0.7-1.3); GFR 97.8; MAGNESIUM 2.5 mg/dL (1.8-2.4); PHOSPHORUS 3.8 mg/dL (2.6-4.7); POTASSIUM 3.8 mmol/L (3.5-5.1)
[2020-02-09 07:00] VITALS: BP 119/62
--- NOTE | 2020-02-09 09:54 | NUR ---
SW following. Discussed with RN, pt from home, room air, regular diet. Pt had surgery 02/07. RN advised no SW needs and anticipates possible discharge home today. SW will continue to follow.
[2020-02-09] MEDS: ENOXAPARIN 40 MG/0.4 ML SYRINGE. SQ SCH (10:02)
[2020-02-09 10:50] VITALS: BP 129/69
--- NOTE | 2020-02-09 11:31 | DISCH ---
DISCHARGE INSTRUCTIONS Condition on Discharge Condition on Discharge: Stable Activity After Discharge Activity Instructions for Disc: Activity as tolerated Driving Instructions after Dis: Do not drive today Checks after Discharge Checks after discharge: Check your Temp as needed DC Comment: CBC, CMP Follow-Up Follow up with: General surgery within 2 weeks for postop wound check Follow Up With: PCP within 2 weeks of discharge STEPHANIE GIANG MD Feb 09, 2020 11:31
[2020-02-09] MEDS ORDERED: DOCU-153 PO (11:33)
[2020-02-09] MEDS ORDERED: SENN-87 PO (11:33)
[2020-02-09] MEDS ORDERED: LORA10TA68 PO (11:40)
--- NOTE | 2020-02-09 11:59 | PDOC ---
PROGRESS NOTES Date of Service DATE: 02/09/20 TIME: 11:59 Subjective Subjective doing well Objective Objective Vital Signs Date Time Temp Pulse Resp B/P (MAP) Pulse Ox O2 Delivery O2 Flow Rate FiO2 02/09/20 10:50 98.4 78 18 129/69 (89) 95 Room Air 98.4 02/08/20 16:42 2 Intake and Output 02/09/20 07:00 Intake Total 2250 ml Output Total 320 ml Balance 1930 ml Intake Oral 600 ml IV Total 1650 ml Output Urine Total 310 ml Estimated Blood Loss 10 ml # Voids 2 Physical Exam Abdomen: Soft Assessment Assessment Problems Medical Problems: (1) Acute appendicitis Status: Acute Plan Plan of Care ok to discharge, FU in 2 weeks Comment Review of Relevant I have reviewed the following items odilia (where applicable) has been applied. Labs Laboratory Tests Test 02/08/20 08:15 02/08/20 09:20 02/08/20 09:50 02/08/20 10:25 Urine Collection Type Void Urine Color Rachel Urine Clarity Clear Urine pH 5.5 (<5.0-8.0) Urine Specific [place] >=1.030 (1.000-1.030) Urine Protein 30 mg/dL (NEG-TRACE) Urine Glucose (UA) Negative mg/dL (NEG) Urine Ketones (Stick) Negative mg/dL (NEG) Urine Blood Moderate (NEG) Urine Nitrite Negative (NEG) Urine Bilirubin Small (NEG) Urine Urobilinogen Dipstick 1.0 mg/dL (0.2 mg/dL) Urine Leukocyte Esterase Negative (NEG) Urine RBC 1-2 /HPF (0-2) Urine WBC 5-10 /HPF (0-4) Urine Squamous Epithelial Cells Mod /LPF Urine Amorphous Sediment Present /HPF Urine Bacteria Few /HPF (0-FEW) Urine Hyaline Casts Occasional /HPF Urine Mucus Mod /LPF White Blood Count 11.5 x10^3/uL (4.0-11.0) Red Blood Count 5.12 x10^6/uL (4.30-5.70) Hemoglobin 14.4 g/dL (13.0-17.5) Hematocrit 43.1 % (39.0-53.0) Mean Corpuscular Volume 84 fL (79-100) Mean Corpuscular Hemoglobin 28 pg (25-35) Mean Corpuscular Hemoglobin Concent 33 g/dL (31-37) Red Cell Distribution Width 14.6 % (11.5-14.5) Platelet Count 355 x10^3/uL (140-400) Neutrophils (%) (Auto) 73 % (31-73) Lymphocytes (%) (Auto) 17 % (24-48) Monocytes (%) (Auto) 9 % (0-9) Eosinophils (%) (Auto) 1 % (0-3) Basophils (%) (Auto) 1 % (0-3) Neutrophils # (Auto) 8.4 x10^3/uL (1.8-7.7) Lymphocytes # (Auto) 1.9 x10^3/uL (1.0-4.8) Monocytes # (Auto) 1.0 x10^3/uL (0.0-1.1) Eosinophils # (Auto) 0.1 x10^3/uL (0.0-0.7) Basophils # (Auto) 0.1 x10^3/uL (0.0-0.2) Sodium Level 137 mmol/L (136-145) Potassium Level 3.5 mmol/L (3.5-5.1) Chloride Level 100 mmol/L (98-107) Carbon Dioxide Level 28 mmol/L (21-32) Anion Gap 9 (6-14) Blood Urea Nitrogen 10 mg/dL (8-26) Creatinine 0.9 mg/dL (0.7-1.3) Estimated GFR (Cockcroft-Gault) 97.8 BUN/Creatinine Ratio 11 (6-20) Glucose Level 81 mg/dL (70-99) Calcium Level 9.2 mg/dL (8.5-10.1) Total Bilirubin 1.2 mg/dL (0.2-1.0) Aspartate Amino Transf (AST/SGOT) 25 U/L (15-37) Alanine Aminotransferase (ALT/SGPT) 34 U/L (16-63) Alkaline Phosphatase 84 U/L (46-116) Total Protein 8.5 g/dL (6.4-8.2) Albumin 3.2 g/dL (3.4-5.0) Albumin/Globulin Ratio 0.6 (1.0-1.7) Lipase 60 U/L (73-393) SARS-CoV-2 Antigen (Rapid) Negative (NEGATIVE) Test 02/09/20 04:00 White Blood Count 13.3 x10^3/uL (4.0-11.0) Red Blood Count 4.46 x10^6/uL (4.30-5.70) Hemoglobin 12.3 g/dL (13.0-17.5) Hematocrit 37.6 % (39.0-53.0) Mean Corpuscular Volume 84 fL (79-100) Mean Corpuscular Hemoglobin 28 pg (25-35) Mean Corpuscular Hemoglobin Concent 33 g/dL (31-37) Red Cell Distribution Width 14.5 % (11.5-14.5) Platelet Count 366 x10^3/uL (140-400) Neutrophils (%) (Auto) 83 % (31-73) Lymphocytes (%) (Auto) 9 % (24-48) Monocytes (%) (Auto) 8 % (0-9) Eosinophils (%) (Auto) 0 % (0-3) Basophils (%) (Auto) 0 % (0-3) Neutrophils # (Auto) 10.9 x10^3/uL (1.8-7.7) Lymphocytes # (Auto) 1.2 x10^3/uL (1.0-4.8) Monocytes # (Auto) 1.1 x10^3/uL (0.0-1.1) Eosinophils # (Auto) 0.0 x10^3/uL (0.0-0.7) Basophils # (Auto) 0.0 x10^3/uL (0.0-0.2) Sodium Level 137 mmol/L (136-145) Potassium Level 3.8 mmol/L (3.5-5.1) Chloride Level 102 mmol/L (98-107) Carbon Dioxide Level 25 mmol/L (21-32) Anion Gap 10 (6-14) Blood Urea Nitrogen 11 mg/dL (8-26) Creatinine 0.9 mg/dL (0.7-1.3) Estimated GFR (Cockcroft-Gault) 97.8 Glucose Level 102 mg/dL (70-99) Calcium Level 8.8 mg/dL (8.5-10.1) Phosphorus Level 3.8 mg/dL (2.6-4.7) Magnesium Level 2.5 mg/dL (1.8-2.4) Laboratory Tests Test 02/09/20 04:00 White Blood Count 13.3 x10^3/uL (4.0-11.0) Red Blood Count 4.46 x10^6/uL (4.30-5.70) Hemoglobin 12.3 g/dL (13.0-17.5) Hematocrit 37.6 % (39.0-53.0) Mean Corpuscular Volume 84 fL (79-100) Mean Corpuscular Hemoglobin 28 pg (25-35) Mean Corpuscular Hemoglobin Concent 33 g/dL (31-37) Red Cell Distribution Width 14.5 % (11.5-14.5) Platelet Count 366 x10^3/uL (140-400) Neutrophils (%) (Auto) 83 % (31-73) Lymphocytes (%) (Auto) 9 % (24-48) Monocytes (%) (Auto) 8 % (0-9) Eosinophils (%) (Auto) 0 % (0-3) Basophils (%) (Auto) 0 % (0-3) Neutrophils # (Auto) 10.9 x10^3/uL (1.8-7.7) Lymphocytes # (Auto) 1.2 x10^3/uL (1.0-4.8) Monocytes # (Auto) 1.1 x10^3/uL (0.0-1.1) Eosinophils # (Auto) 0.0 x10^3/uL (0.0-0.7) Basophils # (Auto) 0.0 x10^3/uL (0.0-0.2) Sodium Level 137 mmol/L (136-145) Potassium Level 3.8 mmol/L (3.5-5.1) Chloride Level 102 mmol/L (98-107) Carbon Dioxide Level 25 mmol/L (21-32) Anion Gap 10 (6-14) Blood Urea Nitrogen 11 mg/dL (8-26) Creatinine 0.9 mg/dL (0.7-1.3) Estimated GFR (Cockcroft-Gault) 97.8 Glucose Level 102 mg/dL (70-99) Calcium Level 8.8 mg/dL (8.5-10.1) Phosphorus Level 3.8 mg/dL (2.6-4.7) Magnesium Level 2.5 mg/dL (1.8-2.4) Microbiology 02/08/20 Urine Culture - Final, Complete Medications Current Medications Sodium Chloride 1,000 ml @ 1,000 mls/hr 1X ONCE IV Last administered on 02/08/20at 10:20; Start 02/08/20 at 08:45; Stop 02/08/20 at 09:44; Status DC Iohexol (Omnipaque 300 Mg/ml) 75 ml 1X ONCE IV Last administered on 02/08/20at 09:50; Start 02/08/20 at 09:45; Stop 02/08/20 at 09:46; Status DC Piperacillin Sod/ Tazobactam Sod 3.375 gm/Sodium Chloride 50 ml @ 100 mls/hr 1X ONCE IV Last administered on 02/08/20at 10:50; Start 02/08/20 at 10:30; Stop 02/08/20 at 11:03; Status DC Sodium Chloride 1,000 ml @ 100 mls/hr Q10H IV Last administered on 02/09/20at 05:31; Start 02/08/20 at 10:42; Stop 02/09/20 at 10:41; Status DC Piperacillin Sod/ Tazobactam Sod (Zosyn Per Pharmacy) 1 each PRN DAILY PRN MC SEE COMMENTS; Start 02/08/20 at 10:45 Ondansetron HCl (Zofran) 4 mg PRN Q6HRS PRN IV NAUSEA/VOMITING; Start 02/08/20 at 10:45; Stop 02/09/20 at 10:44; Status DC Fentanyl Citrate (Fentanyl 2ml Vial) 25 mcg PRN Q5MIN PRN IV MILD PAIN 1-3; Start 02/08/20 at 10:45; Stop 02/09/20 at 10:44; Status DC Fentanyl Citrate (Fentanyl 2ml Vial) 50 mcg PRN Q5MIN PRN IV MODERATE TO SEVERE PAIN Last administered on 02/08/20at 15:59; Start 02/08/20 at 10:45; Stop 02/09/20 at 10:44; Status DC Morphine Sulfate (Morphine Sulfate) 1 mg PRN Q10MIN PRN IV SEVERE PAIN 7-10; Start 02/08/20 at 10:45; Stop 02/09/20 at 10:44; Status DC Ringer's Solution 1,000 ml @ 30 mls/hr Q24H IV ; Start 02/08/20 at 10:45; Stop 02/08/20 at 22:44; Status DC Lidocaine HCl (Xylocaine-Mpf 1% 2ml Vial) 2 ml PRN 1X PRN ID PRIOR TO IV START; Start 02/08/20 at 10:45; Stop 02/09/20 at 10:44; Status DC Hydromorphone HCl (Dilaudid) 0.5 mg PRN Q10MIN PRN IV SEV PAIN, Second choice; Start 02/08/20 at 10:45; Stop 02/09/20 at 10:44; Status DC Prochlorperazine Edisylate (Compazine) 5 mg PACU PRN PRN IV NAUSEA, MRX1 Last administered on 02/08/20at 15:58; Start 02/08/20 at 10:45; Stop 02/09/20 at 10:44; Status DC Ondansetron HCl (Zofran) 4 mg STK-MED ONCE .ROUTE ; Start 02/08/20 at 11:14; Stop 02/08/20 at 11:14; Status DC Propofol (Diprivan) 200 mg STK-MED ONCE IV ; Start 02/08/20 at 11:14; Stop 02/08/20 at 11:14; Status DC Lidocaine HCl (Lidocaine Pf 2% Vial) 5 ml STK-MED ONCE .ROUTE ; Start 02/08/20 at 11:14; Stop 02/08/20 at 11:14; Status DC Dexamethasone Sodium Phosphate (Decadron) 4 mg STK-MED ONCE .ROUTE ; Start 02/08/20 at 11:14; Stop 02/08/20 at 11:14; Status DC Fentanyl Citrate (Fentanyl 5ml Vial) 250 mcg STK-MED ONCE .ROUTE ; Start 02/08/20 at 11:14; Stop 02/08/20 at 11:14; Status DC Rocuronium [place] (Zemuron) 50 mg STK-MED ONCE .ROUTE ; Start 02/08/20 at 11:14; Stop 02/08/20 at 11:14; Status DC Bupivacaine HCl/ Epinephrine Bitart (Sensorcaine-Epi 0.25%-1:248499 Mpf) 30 ml 1X ONCE INJ Last administered on 02/08/20at 14:09; Start 02/08/20 at 13:30; Stop 02/08/20 at 13:31; Status DC Rocuronium [place] (Zemuron) 50 mg STK-MED ONCE .ROUTE ; Start 02/08/20 at 14:13; Stop 02/08/20 at 14:14; Status DC Glycopyrrolate (Robinul) 1 mg STK-MED ONCE .ROUTE ; Start 02/08/20 at 14:18; Stop 02/08/20 at 14:19; Status DC Neostigmine [place] (Neostigmine Methylsulfate) 5 mg STK-MED ONCE .ROUTE ; Start 02/08/20 at 14:18; Stop 02/08/20 at 14:19; Status DC Ketorolac Tromethamine (Toradol 30mg Vial) 30 mg STK-MED ONCE .ROUTE ; Start 02/08/20 at 14:19; Stop 02/08/20 at 14:20; Status DC Sevoflurane (Ultane) 30 ml STK-MED ONCE IH ; Start 02/08/20 at 14:19; Stop 02/08/20 at 14:20; Status DC Sevoflurane (Ultane) 60 ml STK-MED ONCE IH ; Start 02/08/20 at 14:20; Stop 02/08/20 at 14:20; Status DC Piperacillin Sod/ Tazobactam Sod 3.375 gm/Sodium Chloride 50 ml @ 100 mls/hr Q6HRS IV Last administered on 02/09/20at 05:29; Start 02/08/20 at 18:00 Propofol (Diprivan) 200 mg STK-MED ONCE IV ; Start 02/08/20 at 14:44; Stop 02/08/20 at 14:44; Status DC Fentanyl Citrate (Fentanyl 2ml Vial) 100 mcg STK-MED ONCE .ROUTE ; Start 02/08/20 at 15:46; Stop 02/08/20 at 15:46; Status DC Prochlorperazine Edisylate (Compazine) 10 mg STK-MED ONCE .ROUTE ; Start 02/08/20 at 15:46; Stop 02/08/20 at 15:46; Status DC Oxycodone/ Acetaminophen (Percocet 5/325) 1 tab PRN Q4HRS PRN PO PAIN Last administered on 02/08/20at 18:13; Start 02/08/20 at 16:45 Oxycodone/ Acetaminophen (Percocet 5/325) 2 tab PRN Q4HRS PRN PO PAIN; Start 02/08/20 at 16:45 Sennosides (Senna) 17.2 mg PRN BID PRN PO CONSTIPATION; Start 02/08/20 at 17:15 Docusate Sodium (Colace) 100 mg PRN DAILY PRN PO HARD STOOLS; Start 02/08/20 at 17:15 Ondansetron HCl (Zofran) 4 mg PRN Q6HRS PRN IVP NAUSEA/VOMITING; Start 02/08/20 at 17:15 Potassium Chloride (Klor-Con) 40 meq 1X PRN PO PER PROTOCOL; Start 02/08/20 at 17:15; Status UNV Magnesium Oxide (Magnesium Oxide) 400 mg BID PO ; Start 02/08/20 at 21:00; Stop 02/10/20 at 09:01; Status UNV Potassium Chloride/Water 100 ml @ 100 mls/hr Q1H IV ; Start 02/08/20 at 17:15; Stop 02/08/20 at 21:14; Status UNV Magnesium Sulfate 50 ml @ 25 mls/hr Q24H IV ; Start 02/08/20 at 17:15; Stop 02/10/20 at 19:14; Status UNV Potassium Chloride/Water 100 ml @ 100 mls/hr Q1H PRN IV low k; Start 02/08/20 at 17:15; Status UNV Dextrose (Dextrose 50%-Water Syringe) 12.5 gm PRN Q15MIN PRN IV SEE COMMENTS; Start 02/08/20 at 17:15 Acetaminophen (Tylenol) 650 mg PRN Q4HRS PRN PO TEMP OVER 100.4F OR MILD PAIN; Start 02/08/20 at 17:15 Enoxaparin Sodium (Lovenox 40mg Syringe) 40 mg BID SQ ; Start 02/08/20 at 18:00; Stop 02/08/20 at 18:34; Status DC Info (Non-Icu Electrolyte Protocol) 1 ea CONT PRN PRN MC SEE COMMENTS; Start 02/08/20 at 17:15 Enoxaparin Sodium (Lovenox 40mg Syringe) 40 mg BID SQ Last administered on 02/09/20at 10:02; Start 10/6/20 at 21:00 Active Scripts Active Reported Claritin (Loratadine) 10 Mg Tablet 1 Tab PO DAILY 30 Days Vitals/I & O Vital Sign - Last 24 Hours 02/08/20 02/08/20 02/08/20 02/08/20 15:12 15:12 15:27 15:42 Temp 97.3 97.3 Pulse 86 82 82 Resp 20 20 20 B/P (MAP) 137/80 105/77 127/66 Pulse Ox 98 97 96 O2 Delivery Simple Mask Mask Simple Mask Simple Mask O2 Flow Rate 10 10 10 10 02/08/20 02/08/20 02/08/20 02/08/20 15:57 15:59 16:12 16:27 Pulse 82 84 78 Resp 20 20 20 20 B/P (MAP) 124/66 124/60 122/63 Pulse Ox 96 94 95 O2 Delivery Room Air Room Air Nasal Cannula O2 Flow Rate 2 02/08/20 02/08/20 02/08/20 02/08/20 16:42 16:57 17:12 17:32 Pulse 78 76 76 78 Resp 20 20 20 20 B/P (MAP) 122/63 127/78 125/75 125/65 Pulse Ox 95 95 95 96 O2 Delivery Nasal Cannula Room Air Room Air O2 Flow Rate 2 02/08/20 02/08/20 02/08/20 02/08/20 18:00 18:12 18:13 18:30 Temp 97.9 97.9 Pulse 85 Resp 18 B/P (MAP) 138/80 (99) Pulse Ox 92 O2 Delivery Room Air Room Air Room Air Room Air 02/08/20 02/08/20 02/08/20 02/08/20 19:00 19:30 19:30 20:00 Temp 98.4 98.6 98.4 98.6 Pulse 98 100 Resp 20 20 B/P (MAP) 120/71 (87) 118/63 (81) Pulse Ox 92 91 O2 Delivery Room Air Room Air Room Air Room Air 02/08/20 02/08/20 02/08/20 02/09/20 20:00 21:00 23:00 03:00 Temp 98.5 98.1 98.2 98.2 98.5 98.1 98.2 98.2 Pulse 81 85 92 80 Resp 20 20 20 18 B/P (MAP) 112/53 (72) 134/72 (92) 122/74 (90) 126/68 (87) Pulse Ox 90 90 92 94 O2 Delivery Room Air Room Air Room Air Room Air 02/09/20 02/09/20 07:00 10:50 Temp 97.9 98.4 97.9 98.4 Pulse 83 78 Resp 18 18 B/P (MAP) 119/62 (81) 129/69 (89) Pulse Ox 95 95 O2 Delivery Room Air Room Air Intake and Output 02/08/20 02/08/20 02/09/20 15:00 23:00 07:00 Intake Total 400 ml 1550 ml 300 ml Output Total 320 ml Balance 400 ml 1230 ml 300 ml Justifications for Admission Abdominal Pain Indications Is patient in severe pain?: Yes Justification for admission: Patient has severe pain that requires (parenteral analgesic-please state analgesics and route) at least every 4 hours necessitating inpatient level of care. Is NPO status required?: Yes Justification for admission: Patient may require to be NPO for greater 24hours making it medically necessary to manage patient as inpatient. Other Justification ELIJAH ARNDT MD Feb 09, 2020 11:59
--- NOTE | 2020-02-09 14:00 | NUR ---
Discharge Note: Patient was discharged home with self care. Patients IV's were discontinued without any complications per [facility]. Patient was given discharge summary/instructions, follow-ups, prescription and educational material. Patient did not have any further questions or concerns. Patient was taken down to the main entrance via wheelchair with all personal belongings accompanied by [facility] [place], where his was waiting for him to take him home.
--- NOTE | 2020-02-10 14:07 | PATHOLOGY ---
[facility] Accession Number: [id number] . 01 Material submitted: . appendix - APPENDIX . 01 Clinical history: . ACUTE APPENDICITIS . 02 Diagnosis: Appendix, appendectomy: - Acute suppurative and necrotizing appendicitis. LBQ 02/10/2020 1349 Local . 02 Comment: There is no evidence of rupture. (JPM/db; 02/10/2020) . 02 Electronically signed: . Jose De Jesus Gruber MD, Pathologist NPI- [id number] . 01 Gross description: . The specimen is received in formalin, labeled "Sanderson, Iftikhar", "appendix". Received is a partially ruptured veriform appendix measuring 7.5 cm in length and up to 1.1 cm in diameter. The serosal surface displays a roughened, wrinkled, pale caballero-robison appearance with various pale robison adhesions. An area of rupture is noted at the distal end. Sectioning through the appendix reveals a patent lumen is free of fecaliths and mass lesions. Behavior Clinician sections are submitted in cassette A1.(SNA; 02/09/2020)[id number] TOYA/THIAGO 02/09/2020 1619 Local . 02 Pathologist provided ICD-10: K35.80 . 02 CPT . 434007 Specimen Comment: A courtesy copy of this report has been sent to [phone] Specimen Comment: [id number], Specimen Comment: Report sent to ,DR GIANG / DR BOND Performed at: [facility] [address], [place], [place] [id number] MD Orestes Hernandez MD Phone: [phone] Performed at: 02 [facility] [address] [place], [place] [id number] MD Jose De Jesus Gruber MD Phone: [phone]
--- NOTE | 2020-02-11 18:39 | PDOC3 ---
[facility]-Discharge Summary Date of Admission: Date of Admission: Feb 08, 2020 Date of Discharge: Date of Discharge: Feb 09, 2020 Admission Diagnosis: Admitting Diagnosis: Abdominal pain due to acute appendicitis Discharge Diagnosis: Discharge Diagnosis: Abdominal pain due to acute appendicitis Consults: Consults: General surgery Procedures: Procedures: laparoscopic appendectomy Hospital Course: Hospital Course: HPI: 34 year old male who presented to ER today for evaluation of right lower abdominal pain started 2 days ago. Patient denies any fever, no nausea vomiting. Patient said he is not hungry. Patient denies any diarrhea. Patient denies any cough or chest pain. Patient denies any exposure to anybody who tested positive COVID-19. . Taken to OR for laparoscopic appendectomy. Tolerated procedure well without any postoperative complications. Ambulating, pain was well controlled, and bren erating diet. The rest of his hospital course was uneventful. Activity: Activity: Resume previous activity Medications: Home Meds Active Scripts Sennosides (SENNA LAX) 8.6 Mg Tablet, 17.2 MG PO PRN BID PRN for CONSTIPATION for 30 Days, #30 TAB Prov:STEPHANIE GIANG MD 02/09/20 Docusate Sodium (DOK) 100 Mg Capsule, 100 MG PO PRN DAILY PRN for HARD STOOLS for 30 Days, #30 CAP Prov:STEPHANIE GIANG MD 02/09/20 Reported Medications Loratadine (CLARITIN) 10 Mg Tablet, 1 TAB PO DAILY for allergy symptoms for 30 Days, #30 TAB 0 Refills 02/09/20 Scheduled Loratadine (Claritin), 1 TAB PO DAILY, (Reported) Scheduled PRN Docusate Sodium (Dok), 100 MG PO PRN DAILY PRN for HARD STOOLS Sennosides (Senna Lax), 17.2 MG PO PRN BID PRN for CONSTIPATION Total Time: Total Time: Total time spent was 25 minutes in preparing scripts, discharge planning with SW and RN, and preparing this discharge summary. Patient seen and examined on day of discharge. Justicifation of Admission Dx: Justifications for Admission: Justification of Admission Dx: Yes STEPHANIE GIANG MD Feb 11, 2020 18:39
== END 2020-02-09 14:00 | disposition home or self-care (01) | DRG 343 ==
LOC: ER 07:42 → ED HOLD 10:38 → 5 NORTH 14:05
PROVIDERS: ADMIT Internal Medicine; ATTEND Internal Medicine
PROC: 0DTJ4ZZ Resection of Appendix, Percutaneous Endoscopic Approach (ICD-10-PCS; principal; 2020-02-08 12:00)
DX: K35.80 Unspecified acute appendicitis (principal); Z20.828 Contact with and (suspected) exposure to other viral communicable diseases
CPT/HCPCS: 36415; 74177; 80048; 80053; 81001; 83690; 83735; 84100; 85025; 87086; 87426; 96365; 99285; A7015; J0780; J1100; J1650; J1885; J2405; J2543; J2704; J2710; J3010; J3490; J7030; J7120; Q9967; G0378; U0003-CS